=== PATIENT | female | born 1970 | race Caucasian/White ===

== ENCOUNTER 2018-10-02 06:04 | Emergency (ER) | payer BC, OTHER ==
[~2018-10-02] VITALS: Ht 165.1 cm; Wt 66.1 kg
[2018-10-02] MEDS ORDERED: PROMETHAZINE 25 MG/ML, 1ML IM ONE (06:30)
[2018-10-02] MEDS ORDERED: MORPHINE SULFATE 4 MG/ML, 1ML IVPush PRN (06:30)
[2018-10-02] MEDS ORDERED: SODIUM CHLORIDE FLUSH 10ML SYR IVF ONE (06:30)
[2018-10-02] MEDS ORDERED: PROMETHAZINE 25 MG/ML, 1ML ONE (06:43)
[2018-10-02] MEDS ORDERED: MORPHINE SULFATE 4 MG/ML, 1ML ONE (06:44)
[2018-10-02 06:52] LABS: BASOPHILS # (AUTO) 0.02 x10^3/uL (0-0.1); BASOPHILS % (AUTO) 0 % (0-1); EOSINOPHILS # (AUTO) 0.04 x10^3/uL (0-0.4); EOSINOPHILS % (AUTO) 0 % (1-7); LYMPHOCYTES # (AUTO) 1.66 x10^3/uL (1-3.4); LYMPHOCYTES % (AUTO) 14 % (22-44); MD NO; MEAN CORPUSCULAR HEMOGLOBIN 29.3 pg (27.0-34.8); MEAN CORPUSCULAR HGB CONC 32.5 g/dL (32.4-35.8); MEAN CORPUSCULAR VOLUME 90.2 fL (80-100); MONOCYTES # (AUTO) 0.24 x10^3/uL (0.2-0.8); MONOCYTES % (AUTO) 2 % (2-9); NEUTROPHILS # (AUTO) 10.03 x10^3/uL (1.8-6.8); NEUTROPHILS % (AUTO) 84 % (42-75); PLATELET COUNT 334 x10^3/uL (130-400); RED BLOOD COUNT 5.38 x10^6/uL (3.82-5.3); RED CELL DISTRIBUTION WIDTH 13.9 % (9.6-15.2)
--- NOTE | 2018-10-02 06:56 | NUR ---
Pt presentes to ED with c/o n/v and LLQ abdominal pain starting approximately at 0330 today. Pt states she has had 4 episodes of emesis without blood observed. Pt denies diarrhea, cp, sob, trauma, or syncope. CMS intact. PIV established, medications provided per EMAR. Pt connected to NIBP, continous pulse ox, and telemetry monitor. Both bedside rails up for safety measures. Call light within reach. Pt transported on gurney to imaging with both bedrails up and NADN.
[2018-10-02 07:20] LABS: ALANINE AMINOTRANSFERASE 19 U/L (12-78); ALBUMIN 4.3 g/dL (3.4-5.0); ANION GAP 9 mmol/L (5-15); CALCIUM 9.5 mg/dL (8.5-10.1); CHLORIDE 111 mmol/L (98-107); CREATININE 1.22 mg/dL (0.55-1.02)
[2018-10-02 07:22] LABS: ALKALINE PHOSPHATASE 66 U/L (45-117); BILIRUBIN,TOTAL 0.6 mg/dL (0.2-1.0); TOTAL PROTEIN 8.3 g/dL (6.4-8.2)
[2018-10-02 07:26] LABS: CULTURE INDICATED? YES; MICROSCOPIC INDICATED
[2018-10-02] MEDS ORDERED: methylPREDNISolone SOD SUCC 125 MG/2 ML IVPush SCH (08:30)
[2018-10-02] MEDS ORDERED: DIPHENHYDRAMINE 50 MG/ML, 1ML IVPush ONE (08:30)
[2018-10-02] MEDS ORDERED: DIPHENHYDRAMINE 25 MG CAPSULE ONE (08:52)
--- NOTE | 2018-10-02 08:55 | NUR ---
MARGO RN: PATIENT IV DISCONTINUED PRIOR TO IV MEDICATIONS GIVEN. MD NOTIFIED AND MEDICATIONS CHANGED TO PO.PATIENT MEDICATEDAND REYES.
[2018-10-02] MEDS ORDERED: DIPHENHYDRAMINE 25 MG CAPSULE PO ONE (09:00)
[2018-10-02 09:04] VITALS: BP 120/79
== END 2018-10-02 09:06 | disposition home or self-care (01) ==
LOC: ED 08:11
DX: R31.29 Other microscopic hematuria (principal); L50.0 Allergic urticaria; R11.2 Nausea with vomiting, unspecified; R10.9 Unspecified abdominal pain
CPT/HCPCS: 36415; 74176; 80053; 81001; 83690; 85025; 87086; 96372; 96374; 99284; J2270; J2550; J7512; Q0163